=== PATIENT | male | born 1985 | race Caucasian/White ===

== ENCOUNTER 2025-04-10 09:40 | Outpatient (AMB) | payer OTHER, SELFPAY ==
--- NOTE | 2025-04-10 10:01 | HO.SPINEOV ---
Intake Visit Reasons: lower back pain Intake Note: Mr. Manuel is here today c/o low back pain. 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 He is a 39-year-old gentleman who has had issues with his low back starting about 3 months ago. He does not recall any specific inciting event, but what he reports is that he started to notice sometime in early December that he had pain when he was seated in a chair for any length of time and as he would stand to get up and walk it would almost take his breath away and once he got going he was seemed to be okay for awhile. He is very active gentleman, and was having a hard time doing activities at the gym. He would have some degree of moderate to severe pain in the right side of his low back and the midline of the back after he would do his exercises. It would last for about 48 hours. Unfortunately he had to curtail most of those activities because the pain became too intense to continue. He underwent physical therapy, participated actively, doing the exercises at home as well as going to his visits, but that seemed to only aggravate things. He tells me he would do the exercises at home and would be in discomfort for about 48 hours. He also does a lot of traveling, and sitting for a length of time on airplane would give him intense pain in the middle of his back and down on the right side. No pain traveling down the legs thankfully. No tingling or numbness. He was doing an mcoz-qwr-[id number] arthritis cream on the back with no significant improvement. He was also trying Motrin and Tylenol. Again, no help. He is very frustrated is now it has been about 3 months and he has been unable to exercise, but very limited with his activities and is gaining weight. PMH: Otherwise healthy, history of an AC repair of the shoulder Social hx: Does not smoke cigarettes, uses marijuana 4 to 5 times a week, no regular alcohol use Medications: Just the ilcw-gua-voafuxm cream for his low back Allergies: None Physical exam: Awake alert oriented no acute distress, motor examination reveals full strength of bilateral lower extremities, diminished reflexes at the right patella. In supine position, he did have positive straight leg raise with decreased strength of hip flexion on the right side. Positive PRIYA testing reproducing some of the pain in his low back on the right side. Imaging review: He is a lumbar x-ray showing some mild disc collapse on the right side at L4-5 Impression: 39-year-old male presents for evaluation of 3-1/2 months of progressively worsening midline and right-sided low back pain that has not responded to multiple weeks of conservative treatment including physical therapy, Motrin, Tylenol, wrmu-xby-fsfxcfu topical ointments. He has modified his activities. Unfortunately nothing seems to be getting better. He does a lot of sitting at work and for traveling and this seems to only aggravate it as well. I think at this point he is in need of an MRI to exclude a herniated disc or some other degenerative issue which might explain his pain. Thank you for allowing us to care for your patient. The total time spent with this visit with this patient was 45 minutes reviewing history, physical exam, lumbar imaging review, and implementation of treatment plan or further diagnostic testing Andrwe Echevarria MD,PhD [facility] Orders: Orders MR lumbar spine wo con Today M54.9 - Dorsalgia, unspecified Coding Level of Care Code New Pt Level 4 (15182) Diagnoses Back pain M54.9
== END 2025-04-10 10:26 | disposition home or self-care (01) ==
LOC: HO.HNS 09:41
PROVIDERS: PCP Family Medicine; Visit Provider Physician Assistant
DX: M54.9 Dorsalgia, unspecified (principal)
CPT/HCPCS: 99204

== ENCOUNTER 2025-07-24 14:19 | Outpatient (AMB) | payer OTHER, SELFPAY ==
--- NOTE | 2025-07-24 14:41 | A.SPINEOV_ITS ---
Intake Visit Reasons: f/up after PT Intake Note: Mr. Manuel is here today for f/up after PT. 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 Please refer to my last note for the specifics of his problem, but he has had about 7 or 8 months now of severe right-sided low back pain radiating into his hip. The pain has limited him from most of all the recreational activities he enjoys. He has tried a ctivity modifications, anti-inflammatories etc.. He has now completed a few months of physical therapy as requested by his insurance company and unfortunately the pain has only getting worse. In fact he has now had a few weeks of pain that was exacerbated by the physical therapy to where he is now limping around and barely able to move without severe pain when he stands and walks. The pain is from his low back radiating into his hip area and going into his anterior groin. On exam today he looks more uncomfortable than the last time I saw him. He is limping around the office very antalgic gait. His examination reveals intense pain with internal and external rotation of his hip. Continues to have severe right-sided low back pain to palpation. I did get an x-ray here in the office today of the right hip just to make sure I was not dealing with an issue that maybe coming from the hip, this shows some minimal osteoarthritis but the joint space looks like it is okay. I am awaiting a final radiology report. I am wondering if he has been compensating for the back pain with the right hip and now may have injured himself in the right hip as well. I am wondering if it could be a labral tear. He obtain the injury specifically when he was doing a split squat at physical therapy while attempting to rehab his back and hip pain. I do not think doing anymore therapy is going to benefit him. I am going to order the lumbar MRI as previously requested, given the previous disc degeneration we sought L4-5 on his x-ray. I will also order a right hip MRI to ensure we are not dealing with also a labral tear which happened at therapy. I gave him a muscle relaxer, and also increased his dose of Motrin to 800 and called both of these into his pharmacy. Total amount of time spent in this visit was 20 minutes in discussion of symptoms, hip and lumbar imaging results and subsequent plan of care Andrew Echevarria MD,PhD [facility] Orders: Orders XR hip RT min 2V Today M25.551 - Pain in right hip MR hip RT wo con Today M25.551 - Pain in right hip MR lumbar spine wo con Today M54.9 - Dorsalgia, unspecified Medications: New tizanidine 4 mg PO Q8H PRN 30 tabs 0RF muscle spasticity ibuprofen 800 mg PO Q8H 60 tabs 0RF Coding Level of Care Code Est Pt Level 3 (94438) Diagnoses Right hip pain M25.551 Back pain M54.9
== END 2025-07-24 15:45 | disposition home or self-care (01) ==
LOC: HO.HNS 14:20
PROVIDERS: PCP Family Medicine; Visit Provider Physician Assistant
DX: M25.551 Pain in right hip (principal); M54.9 Dorsalgia, unspecified
CPT/HCPCS: 99213

== ENCOUNTER 2025-07-24 14:19 | Outpatient (REF) | payer OTHER, SELFPAY ==
--- NOTE | ~2025-07-24 | XR_ITS ---
EXAMINATION: XR HIP, RIGHT CLINICAL INFORMATION: M25.551 - Pain in right hip COMPARISON: None available. TECHNIQUE: Two views of the right hip. FINDINGS: No fracture. Alignment is anatomic. Hip joint space is maintained. Spurring of the lateral aspect of the acetabulum.. Right SI joint appears unremarkable. Intact symphysis pubis. Soft tissues are unremarkable. XR/XR hip RT min 2V IMPRESSION: Mild lateral acetabular bony spurring. No acute osseous findings. Electronically signed by: Loco Enciso MD 07/24/2025 03:20 PM EDT
== END 2025-07-24 14:20 | disposition home or self-care (01) ==
LOC: HO.HOSX 14:19
PROVIDERS: PCP Family Medicine; Visit Provider Physician Assistant
DX: M25.551 Pain in right hip (principal); M54.50 Low back pain, unspecified
CPT/HCPCS: 73502

== ENCOUNTER → 2025-07-24 15:01 | Outpatient (BNV) | payer OTHER, SELFPAY | PROVIDERS: PCP Family Medicine; Visit Provider Radiology Diagnostic Ultrasound | DX: M25.551 Pain in right hip (principal) | CPT/HCPCS: 73502 ==

== ENCOUNTER 2025-07-27 15:55 | Outpatient (REF) | payer OTHER, SELFPAY ==
--- NOTE | ~2025-07-27 | MR_ITS ---
EXAMINATION: MRI of the right hip was performed without contrast TECHNIQUE: Multiplanar multisequence MR imaging through a lower extremity joints was performed without intra-articular contrast INDICATION: Right hip pain Prior: None FINDINGS: Labrum: Linear fluid signal traverses the superior labrum between 11-1:00. There are small paralabral cysts. Articular Cartilage/Joint fluid: There are no articular cartilage defect. There is a physiologic volume of synovial fluid. Ligament/Muscle/Tendon: Ligament of teres appears intact. Distal gluteal tendons are intact. Proximal hamstring tendon is within normal limits. Neurovascular: Major neurovascular structures are unremarkable and symmetrical. Deep and superficial soft tissues: There is no intrapelvic mass or ascites. Visualized bowel is grossly unremarkable. Subcutaneous soft tissues are within normal limits. There is no adenopathy. Bones/Marrow: Bone marrow signal is physiologic. SI joints are symmetrical without erosions, or ankylosis. Pubic symphysis joint is unremarkable. MR/MR hip RT wo con IMPRESSION: Superior right hip labral tear between 11-1:00. Electronically signed by: Alex Licea MD 07/27/2025 04:57 PM EDT
== END 2025-07-27 15:56 | disposition home or self-care (01) ==
LOC: HO.MRI 15:55
PROVIDERS: Visit Provider Physician Assistant
DX: M25.551 Pain in right hip (principal)
CPT/HCPCS: 73721

== ENCOUNTER → 2025-07-27 16:07 | Outpatient (BNV) | payer OTHER, SELFPAY | PROVIDERS: Visit Provider Radiology Diagnostic Radiology | DX: S73.191A Other sprain of right hip, initial encounter (principal) | CPT/HCPCS: 73721 ==

== ENCOUNTER 2025-09-08 09:20 | Outpatient (AMB) | payer OTHER, SELFPAY ==
--- NOTE | 2025-09-08 09:22 | A.SPINEOV_ITS ---
Intake Visit Reasons: discuss possible surgery Intake Note: Mr. Manuel is here today to Discuss surgery. 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 He is still continuing to complain of lower back pain going down toward his hips. His back also feels ?weak?, and he has a very hard time doing any kind of lifting. He has been compliant with activity restrictions and has been doing active PT through an interactive online PT service that his insurance company provides. He has been doing that now for at least 6 weeks. He has no pain radiating down his legs, weakness numbness, incontinence etc.. He does not need to take daily tpqj-ngs-gjcasom pain medications. He does smoke marijuana regularly. On exam he has no focal weakness. 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 At this point since his pain is relatively manageable, and he has no weakness or numbness, I do not have an indication for surgery. We did sit down and review his films together and we had a lengthy discussion about keeping his activities modified to avoid axial loading and twisting. He does like to play golf, and I told him that potentially could do it next year but for the next 3-6 months we need to let this heal. I will follow up with him in 3-4 months to reassess how he is doing. If he develops severe leg pain, tingling numbness or weakness he will call me and we can arrange surgery. Total amount of time spent in this visit was 20 minutes in discussion of symptoms, lumbar imaging results and subsequent plan of care Andrew Echevarria MD,PhD [facility] Coding Level of Care Code Est Pt Level 3 (99209) Diagnoses Back pain M54.9
== END 2025-09-08 09:55 | disposition home or self-care (01) ==
LOC: HO.HNS 09:20
PROVIDERS: Visit Provider Physician Assistant
DX: M54.9 Dorsalgia, unspecified (principal)
CPT/HCPCS: 99213